=== PATIENT | male | born 2000 | race Caucasian/White ===

== ENCOUNTER 2025-04-20 16:32 | Emergency (ER) | payer OTHER ==
[2025-04-20] MEDS ORDERED: Acetaminophen 500 MG TAB ONE (16:58)
[2025-04-20] MEDS ORDERED: Ibuprofen 200 MG TAB ONE (16:58)
== END 2025-04-20 18:12 | disposition home or self-care (01) ==
LOC: ERS 16:32
DX: S40.012A Contusion of left shoulder, initial encounter (principal); F17.210 Nicotine dependence, cigarettes, uncomplicated; Z55.6 Problems related to health literacy; V49.40XA Driver injured in collision with unspecified motor vehicles in traffic accident, initial encounter
CPT/HCPCS: 71045; 93005